=== PATIENT | female | born 1945 | race Caucasian/White ===

== ENCOUNTER 2020-06-12 13:39 | Emergency (ER) | payer MEDICARE, OTHER ==
--- NOTE | 2020-06-12 14:00 | ERPHSYRPT ---
- History of Present Illness Time Seen by Provider: 06/12/20 13:50 Source: patient Physician History: Patient is a 75-year-old female presents to our ED for evaluation of a syncopal episode and head laceration. Patient states she was mulching leaves while pushing a lawnmower. Patient does not recall what happened but knows that she awoke on the floor of her porch. Patient denies chest pain shortness of breath. No neck pain. Cervical spine cleared clinically. Patient admits to history of a mini stroke. Patient denies heart problems. Patient states she was a diabetic but lost significant weight intentionally and her diabetes resolved. Patient voices no other complaints or concerns at this time. Timing/Duration: today Severity: moderate Modifying Factors: Improves With: nothing Associated Symptoms: denies symptoms Allergies/Adverse Reactions: Penicillins Allergy (Verified 06/12/20 14:07) Home Medications: Aspirin EC 81 mg [Ecotrin 81 mg] 81 mg PO DAILY 06/12/20 [History] Lisinopril/Hydrochlorothiazide [Lisinopril-Hctz 20-12.5 mg Tab] 1 tab PO DAILY 06/12/20 [History] Metoprolol Tartrate 50 mg PO DAILY 06/12/20 [History] Rosuvastatin Calcium 20 mg PO DAILY 06/12/20 [History] - Review of Systems Constitutional: No Symptoms, No Fever, No Chills Eyes: No Symptoms Ears, Nose, & Throat: No Symptoms Respiratory: No Symptoms, No Cough, No Dyspnea Cardiac: No Symptoms, No Chest Pain, No Edema, No Syncope Abdominal/Gastrointestinal: No Symptoms, No Abdominal Pain, No Nausea, No Vomiting, No Diarrhea Genitourinary Symptoms: No Symptoms, No Dysuria Musculoskeletal: No Symptoms, No Back Pain, No Neck Pain Skin: No Symptoms, No Rash Neurological: No Symptoms, No Dizziness, No Focal Weakness, No Sensory Changes Psychological: No Symptoms Endocrine: No Symptoms Hematologic/Lymphatic: No Symptoms Immunological/Allergic: No Symptoms All Other Systems: Reviewed and Negative - Past Medical History Neurological History: Stroke Cardiac History: Hypertension, Other Respiratory History: No Pertinent History Endocrine Medical History: Adrenal Insufficiency, Diabetes Type II Musculoskeletal History: Arthritis, Osteoarthritis Other Medical History: CVA, R SIDED HEMIPLEGIA THAT HAS RESOLVED, STINT IN HEART 05/12/02. - Nursing Vital Signs Nursing Vital Signs: Initial Vital Signs Pulse Rate 90 06/12/20 13:48 Respiratory Rate 21 06/12/20 13:48 Blood Pressure 164/94 06/12/20 13:48 O2 Sat by Pulse Oximetry 95 06/12/20 13:48 Pain Scale Pain Intensity 5 - Physical Exam General Appearance: no apparent distress, alert Eye Exam: PERRL/EOMI, eyes nml inspection, other (Large left frontal scalp laceration above the eyebrow. The area is surrounded by contused skin.) Ears, Nose, Throat Exam: normal ENT inspection, TMs normal, pharynx normal, moist mucous membranes Neck Exam: normal inspection, non-tender, supple, full range of motion Respiratory Exam: normal breath sounds, lungs clear, No respiratory distress Cardiovascular Exam: regular rate/rhythm, normal heart sounds, normal peripheral pulses Gastrointestinal/Abdomen Exam: soft, normal bowel sounds, No tenderness, No mass Back Exam: normal inspection, normal range of motion, No CVA tenderness, No vertebral tenderness Extremity Exam: normal inspection, normal range of motion, pelvis stable Neurologic Exam: alert, oriented x 3, cooperative, normal mood/affect, nml cerebellar function, nml station & gait, sensation nml, No motor deficits Skin Exam: normal color, warm, dry, No rash Lymphatic Exam: No adenopathy SpO2 Interpretation: normal SpO2: 98 O2 Delivery: Room Air Procedures - Laceration/Wound Repair Left Upper Anterior Head Wound Location: Left Wound Length (cm): 4 Wound's Depth, Shape: superficial, flap, contused tissue Wound Explored: no foreign body noted Irrigated: Yes Hibiclens Prep: Yes Anesthesia: 1% Lidocaine Volume Anesthetic (ccs): 3 Wound Debrided: minimal Wound Repaired With: sutures Suture Size/Type: 6-0 Number of Sutures: 9 Layer Closure?: No Sterile Dressing Applied?: Yes Splint Applied?: No Progress: 06/12/20 16:18 Patient tolerated procedure well. No immediate post procedure complications. - Course Nursing assessment & vital signs reviewed: Yes EKG Interpreted by Me: RATE (98), Sinus Rhythm, NORMAL AXIS, NORMAL INTERVALS (Bigeminy) - CT Exams Head CT Interpretation: Tele-radiologist Report (Frontal parietal scalp hematoma. Atrophy and degenerative microischemia within normal limits for patient's age. Paranasal sinus disease) Ordered Tests: Active Orders 24 hr Category Date Time Status Construction Quality Control Manager STAT Care 06/12/20 13:51 Active EKG-ER Only STAT Care 06/12/20 13:50 Active IV Insertion STAT Care 06/12/20 13:50 Active Pulse Oximetry (ED) STAT Care 06/12/20 13:50 Active HEAD WITHOUT CONTRAST [CT] Stat Exams 06/12/20 13:52 Completed CBC W DIFF Stat Lab 06/12/20 14:00 Completed CMP Stat Lab 06/12/20 14:00 Completed MAGNESIUM Stat Lab 06/12/20 14:00 Completed TROPONIN Q3H Lab 06/12/20 14:00 Completed TROPONIN Q3H Lab 06/12/20 17:00 Ordered TROPONIN Q3H Lab 06/12/20 20:00 Ordered TROPONIN Q3H Lab 06/12/20 23:00 Ordered TROPONIN Q3H Lab 06/13/20 02:00 Ordered UA W/RFX UR CULTURE Stat Lab 06/12/20 13:51 Ordered Medication Summary Discontinued Medications Generic Name Dose Route Start Last Admin Trade Name Freq PRN Reason Stop Dose Admin Morphine Sulfate 2 mg 06/12/20 16:14 Morphine Sulfate 2 Mg Inj IV 06/12/20 16:15 STAT ONE Ondansetron HCl 4 mg 06/12/20 16:14 Zofran 4 Mg/2 Ml Vial IV 06/12/20 16:15 STAT ONE Lab/Rad Data: Laboratory Result Diagrams 06/12/20 14:00 06/12/20 14:00 Laboratory Results 06/12/20 06/12/20 06/12/20 Range/Units 14:00 14:00 14:00 WBC 9.6 (4.0-10.5) K/mm3 RBC 4.46 (4.1-5.4) M/mm3 Hgb 13.5 (12.0-16.0) gm/dl Hct 41.1 (35-47) % MCV 92.2 (78-100) fl MCH 30.3 (26-32) pg MCHC 32.8 (32-36) g/dl RDW 12.6 (11.5-14.0) % Plt Count 274 (150-450) K/mm3 MPV 9.2 (7.5-11.0) fl Gran % 67.6 H (36.0-66.0) % Eos # (Auto) 0.12 (0-0.5) Absolute Lymphs (auto) 2.22 (1.0-4.6) Absolute Monos (auto) 0.72 (0.0-1.3) Lymphocytes % 23.2 L (24.0-44.0) % Monocytes % 7.5 (0.0-12.0) % Eosinophils % 1.3 (0.00-5.0) % Basophils % 0.4 (0.0-0.4) % Absolute Granulocytes 6.47 (1.4-6.9) Basophils # 0.04 (0-0.4) Sodium 137 (137-145) mmol/L Potassium 4.2 (3.5-5.1) mmol/L Chloride 103 (98-107) mmol/L Carbon Dioxide 23 (22-30) mmol/L Anion Gap 14.9 (5-15) MEQ/L BUN 27 H (7-17) mg/dL Creatinine 1.42 H (0.52-1.04) mg/dL Estimated GFR 38.1 ML/MIN Glucose 159 H (74-106) mg/dL Calcium 10.5 H (8.4-10.2) mg/dL Magnesium 2.1 (1.6-2.3) mg/dL Total Bilirubin 0.50 (0.2-1.3) mg/dL AST 29 (14-36) U/L ALT 21 (0-35) U/L Alkaline Phosphatase 62 (38-126) U/L Troponin I < 0.012 (0.000-0.034) ng/mL Serum Total Protein 8.3 H (6.3-8.2) g/dL Albumin 4.7 (3.5-5.0) g/dL - Progress Progress: improved Progress Note: 06/12/20 16:21 Patient reassessed. She feels well. Laceration repaired. CT head negative for acute intracranial pathology. Initial troponin negative. Bigeminy observed on her EKG and residential monitor. Patient had a syncopal episode. Patient will require admission for further evaluation and treatment. Patient's daughter advised transfer to [facility]. Patient agreed. Plan of care discussed with patient. She agrees to transfer from [facility] to this [facility] for further evaluation and treatment. Dr. Rondon accepts transfer to [facility]. 06/12/20 16:25 Discussed with : Other Counseled pt/family regarding: lab results, diagnosis, rad results - Departure Departure Disposition: Transfer Clinical Impression: Bigeminy, Syncope and collapse, Face lacerations, Elevated serum creatinine, Concussion, Scalp hematoma, Paranasal sinus disease Condition: Stable Critical Care Time: No Referrals: ANA ALBARADO [NON-STAFF PHY W/O PRIVILEGES] -
[2020-06-12 14:17] LABS: Absolute Neutrophil Ct (ANC) 6.47 (1.4-6.9); BASOPHIL % 0.4 % (0.0-0.4); Basophil (Absolute #) 0.04 (0-0.4); Eosinophil % 1.3 % (0.00-5.0); Eosinophil (Absolute #) 0.12 (0-0.5); Hematocrit 41.1 % (35-47); Hemoglobin 13.5 gm/dl (12.0-16.0); Lymphocyte (Absolute #) 2.22 (1.0-4.6); Lymphocytes % 23.2 % (24.0-44.0); Mean Cell Volume 92.2 fl (78-100); Mean Corpuscular Hemoglobin 30.3 pg (26-32); Mean Corpuscular Hgb Concent. 32.8 g/dl (32-36); Mean Platelet Volume 9.2 fl (7.5-11.0); Monocyte (Absolute #) 0.72 (0.0-1.3); Monocytes % 7.5 % (0.0-12.0); Neutrophil % 67.6 % (36.0-66.0); Platelet Count 274 K/mm3 (150-450); Red Blood Count 4.46 M/mm3 (4.1-5.4); Red Cell Distribution Width 12.6 % (11.5-14.0); White Blood Count 9.6 K/mm3 (4.0-10.5)
[2020-06-12 14:33] LABS: ALBUMIN 4.7 g/dL (3.5-5.0); ANION GAP 14.9 MEQ/L (5-15); BILIRUBIN,TOTAL 0.5 mg/dL (0.2-1.3); Calcium 10.5 mg/dL (8.4-10.2); MAGNESIUM 2.1 mg/dL (1.6-2.3); Potassium 4.2 mmol/L (3.5-5.1); Total Protein 8.3 g/dL (6.3-8.2)
[2020-06-12 14:34] LABS: Creatinine 1 1.42 mg/dL (0.52-1.04); EST GLOMERULAR FILTRATION RATE 38.1 ML/MIN
--- NOTE | 2020-06-12 14:41 | XRAY ---
Indication: Left frontal head injury. Multiple contiguous axial images obtained through the head without contrast. Comparison: None Age-appropriate global atrophy and mild/moderate periventricular degenerative micro-ischemia bilaterally. No acute intracranial hemorrhage, abnormal extra-axial fluid collection, or mass effect. Fourth ventricle is midline without hydrocephalus. Small left frontoparietal scalp hematoma. Bony calvarium intact. There is chronic appearing mucoperiosteal thickening of both ethmoid and both maxillary sinuses with both maxillary sinus fluid leveling. Mastoid air cells are clear. Impression: 1. Left frontoparietal scalp hematoma. No underlying fracture or acute intracranial abnormalities. 2. Atrophy and degenerative micro-ischemia within normal limits for patient's age. 3. Paranasal sinus disease.
[2020-06-12] MEDS ORDERED: MORPHINE SULFATE 2 MG INJ IV ONE (16:14)
[2020-06-12] MEDS ORDERED: Zofran 4 MG/2 ML VIAL IV ONE (16:14)
[2020-06-12] MEDS ORDERED: Zofran 4 MG/2 ML VIAL ONE (16:23)
[2020-06-12] MEDS ORDERED: MORPHINE SULFATE 2 MG INJ ONE (16:23)
[2020-06-12 18:06] LABS: Appearance CLEAR (CLEAR); Bacteria PACKED /HPF (NEGATIVE); Bilirubin NEGATIVE (NEGATIVE); Blood NEGATIVE Ery/ul (0-5); Glucose NEGATIVE (NEGATIVE); Ketones SMALL (NEGATIVE); Leukocyte Esterase TRACE (NEGATIVE); Mucus SLIGHT /HPF (NEGATIVE); Nitrite POSITIVE (NEGATIVE); Protein,Urine Dip NEGATIVE (Negative); Specific Gravity 1.015 (1.005-1.025); Urobilinogen NEGATIVE mg/dL (0-1)
[2020-06-12] MEDS ORDERED: Macrobid 100MG Capsule PO ONE (18:47)
[2020-06-12] MEDS ORDERED: Macrobid 100MG Capsule ONE (18:48)
[2020-06-12 20:08] VITALS: BP 154/87; PULSE 93; O2SAT 95
== END 2020-06-12 20:39 | disposition short-term general hospital (02) ==
LOC: ED 13:39
DX: R55 Syncope and collapse (principal); S01.112A Laceration without foreign body of left eyelid and periocular area, initial encounter; R00.8 Other abnormalities of heart beat; I10 Essential (primary) hypertension; Z79.899 Other long term (current) drug therapy; S06.0X9A Concussion with loss of consciousness of unspecified duration, initial encounter; R79.89 Other specified abnormal findings of blood chemistry; S00.03XA Contusion of scalp, initial encounter; J32.9 Chronic sinusitis, unspecified; E11.9 Type 2 diabetes mellitus without complications
CPT/HCPCS: 36000; 36415; 70450; 80053; 81001; 83735; 84484; 85025; 87077; 87086; 87186; 93005; 93041; 94760; 96374; 96375; 99284; J2270; J2405; A9270-GY

== ENCOUNTER 2024-01-08 22:12 | Emergency (ER) | payer MEDICARE ==
[2024-01-08 22:15] VITALS: TEMP 99.1
--- NOTE | 2024-01-08 22:17 | ERPHSYRPT ---
- History of Present Illness Time Seen by Provider: 01/08/24 22:17 Source: patient, family Exam Limitations: no limitations Physician History: This is an 78-year-old white female patient who was brought into the emergency department by her daughter. Patient fell at approxi-11:30 AM. Patient took 1000 mg of Tylenol at noon today. Patient tripped over the elevated edge of her concrete driveway. She did not hit her head. She has no headache and she did not hurt her neck and she has no neck pain. Patient fell onto the left side and she has left shoulder pain left upper posterior lateral rib pain and left hip pain. Patient is able to ambulate. Patient is on anticoagulation therapy (Xarelto). Patient has history of gastroesophageal reflux disease, hypertension diabetes and hyperlipidemia. Patient states that she did not want to come in to the emergency department today. Her daughter made her come in for evaluation. Occurred: this morning Reason for Fall: tripped Injuries/Pain Location: upper extremity (Left shoulder), chest (Left upper posterior lateral ribs), lower extremity (Left hip) Loss of Consciousness: no loss of consciousness Quality: aching Severity of Pain-Max: moderate Severity of Pain-Current: moderate Modifying Factors: Improves With: movement Associated Symptoms (Fall): extremity injury (Left shoulder pain), No abdominal pain, No back pain, No confusion, No chest pain, No headache, No neck pain, No shortness of breath, No vision changes Allergies/Adverse Reactions: Penicillins Allergy (Intermediate, Verified 01/08/24 22:26) Rash Sulfa (Sulfonamide Antibiotics) Allergy (Intermediate, Verified 01/08/24 22:26) Rash Home Medications: Rosuvastatin Calcium 20 mg PO HS 06/12/20 [History] Fexofenadine HCl [Aller-Ease] 180 mg PO DAILY 01/08/24 [History] Losartan Potassium 50 mg [Cozaar 50 MG] 1 tab PO DAILY 01/08/24 [History] Metformin HCl 500 mg [Glucophage 500 MG] 1 tab PO DAILY 01/08/24 [History] Minocycline HCl 100 mg PO HS 01/08/24 [History] PANTOPRAZOLE 40 mg Tablet [Protonix 40MG Tablet] 1 tab PO HS 01/08/24 [History] Rivaroxaban [Xarelto] 20 mg PO HS 01/08/24 [History] Hx Tetanus, Diphtheria Vaccination/Date Given: No Travel Risk - International Travel Have you traveled outside of the country in past 3 weeks: No - Emerging Infectious Disease Are you exhibiting symptoms associated with any current EIDs: No - Review of Systems Constitutional: No Symptoms Eyes: No Symptoms Ears, Nose, & Throat: No Symptoms Respiratory: No Symptoms Cardiac: No Symptoms Abdominal/Gastrointestinal: No Symptoms Genitourinary Symptoms: No Symptoms Musculoskeletal: Fall, Injury (Left shoulder, left upper posterior lateral ribs and left hip pain after a fall), No Back Pain, No Neck Pain, No Deformity Skin: No Symptoms Neurological: No Symptoms Psychological: No Symptoms Endocrine: No Symptoms Hematologic/Lymphatic: No Symptoms Immunological/Allergic: No Symptoms All Other Systems: Reviewed and Negative - Past Medical History Pertinent Past Medical History: Yes Neurological History: Stroke Cardiac History: Hypertension, Other Respiratory History: No Pertinent History Endocrine Medical History: Adrenal Insufficiency, Diabetes Type II Musculoskeletal History: Arthritis, Osteoarthritis Other Medical History: CVA, R SIDED HEMIPLEGIA THAT HAS RESOLVED, STINT IN HEART 05/12/02. - Past Surgical History Past Surgical History: Yes Cardiac: Cardiac Stent Gastrointestinal: Appendectomy, Cholecystectomy Female Surgical History: Hysterectomy - Social History Smoking Status: Never smoker Exposure to second hand smoke: No Drug Use: none Patient Lives Alone: Yes - Nursing Vital Signs Nursing Vital Signs: Initial Vital Signs Temperature 99.1 F 01/08/24 22:14 Pulse Rate 77 01/08/24 22:14 Respiratory Rate 20 01/08/24 22:14 Blood Pressure 180/115 01/08/24 22:14 O2 Sat by Pulse Oximetry 97 01/08/24 22:14 Pain Scale Pain Intensity 4 - Orange Coma Score Best Eye Response (Alana): (4) open spontaneously Best Verbal Response (Orange): (5) oriented Best Motor Response (Alana): (6) obeys commands Alana Total: 15 - Physical Exam General Appearance: no apparent distress, alert Head Injury: no evidence of injury Eye Exam: PERRL/EOMI, eyes nml inspection ENT Exam: airway nml, nml ext.inspection Neck Exam: supple, trachea midline, full range of motion, normal alignment, normal inspection Respiratory/Chest Exam: normal breath sounds, rib tenderness (Left upper to mid posterior lateral rib pain to palpation. No deformity), No chest tenderness, No respiratory distress, No ecchymosis, No crepitus Cardiovascular Exam: normal heart sounds, regular rate/rhythm Gastrointestinal Exam: soft, normal bowel sounds, No tenderness Rectal Exam: not done Back Exam: normal inspection, normal range of motion, No CVA tenderness, No vertebral tenderness Extremity Exam: normal inspection, normal range of motion, hip tenderness (To palpation), No evidence of injury Neurologic Exam: alert, oriented x 3, cooperative, prosthetic lab technician II-XII nml as tested, normal mood/affect, nml cerebellar function, nml station & gait, sensation nml Skin Exam: normal color, warm, dry SpO2 Interpretation: normal SpO2: 97 O2 Delivery: Room Air - Course Nursing assessment & vital signs reviewed: Yes Ordered Tests: Active Orders 24 hr Category Date Time Status HIP UNI (2V) INCL PEL IF DONE Stat Exams 01/08/24 23:12 Completed RIBS UNILATERAL Stat Exams 01/08/24 23:12 Completed SHOULDER Stat Exams 01/08/24 23:12 Completed Medication Summary Discontinued Medications Generic Name Dose Route Start Last Admin Trade Name Zbigniew PRN Reason Stop Dose Admin Oxycodone/Acetaminophen 1 tab 01/08/24 23:11 01/08/24 23:21 Oxycodone Hcl/Apap 5 Mg/325 Mg Tablet PO 01/08/24 23:12 1 tab STAT STA Administration Oxycodone/Acetaminophen Confirm 01/08/24 23:21 Oxycodone Hcl/Apap 5 Mg/325 Mg Tablet Administered 01/08/24 23:22 Dose 1 tab .ROUTE .[employer] - Progress Progress Note: 01/08/24 23:52 My medical decision making and the assignment of low to moderate complexity to this patient's medical issues based on review of the patient's past medical history, review the patient's medication list, review of patient drug allergy list, history present illness and physical findings on examination. The workup in this patient includes x-ray of the patient's left shoulder, left ribs, and left hip. Differential diagnosis includes but is not limited to bony contusion, dislocation, acute fracture 01/09/24 01:39 The left shoulder x-ray was interpreted by the radiologist and I reviewed the impression. Patient states no acute osseous abnormality seen involving the left shoulder joint bones. There is a questionable nondisplaced left sixth rib fracture. Left rib x-rays was interpreted by the radiologist and I reviewed the impression. The impression is suspected nondisplaced fracture of the left sixth rib. No pneumothorax, consolidation or pleural effusion. The left hip and pelvis x-ray films were interpreted by the radiologist and I reviewed the impression. The impression states no definite acute fracture. Mild to moderate osteoarthritic changes. Counseled pt/family regarding: diagnosis, need for follow-up, rad results Medical Desision Making - Independent Historian Additional History obtained from: Family - Diagnostic Testing Diagnostic test were ordered, analyzed, and reviewed by me: Yes Radiological Interpretation: Reviewed by me, Teleradiologist Report - Departure Departure Disposition: Home Clinical Impression: Closed traumatic nondisplaced fracture of rib of left side with routine healing Condition: Stable Critical Care Time: No Referrals: AMBER CARTER MD [Primary Care Provider] - Follow up/PCP as directed Additional Instructions: Ice pack to tender areas 3 times a day for 72 hours. Take the pain medicine that I provided you in the emergency department. Once that medication is completed, you can use your Tylenol as prescribed. Call your primary care provider on 01/11/2024, to make arranges for follow-up appointment for further evaluation management in the next 3 to 5 days.
[2024-01-08] MEDS ORDERED: PERCOCET TABLET 5/325MG ONE (23:21)
[2024-01-08] MEDS: PERCOCET TABLET 5/325MG PO STA (23:21)
--- NOTE | 2024-01-09 01:13 | XRAY ---
CLINICAL HISTORY: Fall injury COMPARISON: None TECHNIQUE: x-ray of the shoulder joint external rotation and internal rotation and Y-view FINDINGS: No acute osseous abnormality is seen involving the shoulder joint bones. No soft tissue abnormality is seen. No intra-articular and periarticular densification is seen. Mild osteoarthritis changes are seen involving the acromioclavicular joint. On reviewing the oblique views of the ribs a possible non-displaced fracture of the left 6th rib is noted. IMPRESSION: 1. No acute osseous abnormality is seen involving the shoulder joint bones. 2. On reviewing the oblique views of the ribs a possible non-displaced fracture of the left 6th rib is noted. DISCLAIMER:A subtle bone abnormality or fracture may not be readily apparent on x-rays, thus clinical correlation and further imaging including follow-up CT, MRI, or follow-up x-rays are advised as needed.[facility] ER was called at [phone] at 12:05 AM STRAIGHT KNIFE CUTTER MACHINE, 01/09/[address] Ede Frost was informed about medical findings. Electronically Signed by: Jerry Orozco MD. (01/09/2024 01:08:49 EDT)
--- NOTE | 2024-01-09 01:13 | XRAY ---
CLINICAL HISTORY: Fall injury COMPARISON: None. TECHNIQUE: X-ray of the ribs left side unilateral, AP lateral and oblique views FINDINGS: A suspected non-displaced fracture of the left 6th rib is noted. curvilinear calcification of the aortic arch. No obvious pneumothorax, consolidation, or pleural effusion is seen IMPRESSION: 1. A suspected non-displaced fracture of the left 6th rib is noted. 2. No obvious pneumothorax, consolidation, or pleural effusion is seen. DISCLAIMER:A subtle bone abnormality or fracture may not be readily apparent on x-rays, thus clinical correlation and further imaging including follow up CT, MRI, or follow up x-rays are advised as needed.[facility] ER was called at [phone] at 12:05 AM HOUSE MOVER HELPER, 01/09/[address] Ede Frost was informed about medical findings. Electronically Signed by: Jerry Orozco MD. (01/09/2024 01:10:30 EDT)
--- NOTE | 2024-01-09 01:30 | XRAY ---
CLINICAL HISTORY: Fall injury COMPARISON: None. TECHNIQUE: X-ray of the pelvis AP view and left hip joint AP and lateral views. FINDINGS: No acute osseous abnormality is noted. Mild to moderate osteoarthritis changes involving the bilateral hip and sacroiliac joints. Degenerative changes are seen involving the spine. Calcific densities are seen in the pelvis and likely represent phleboliths. calcific density is seen in the right flank which could be renal calculus/fecalith IMPRESSION: 1. No definite/obvious acute fracture is seen. 2. Mild to moderate osteoarthritis changes involving the bilateral hip and sacroiliac joints. 3. Advise clinical correlation. DISCLAIMER:A subtle bone abnormality or fracture may not be readily apparent on x-rays, thus clinical correlation and further imaging including follow up CT, MRI, or follow up x-rays are advised as needed. Electronically Signed by: Jerry Orozco MD. (01/09/2024 01:24:42 EDT)
[2024-01-09] MEDS ORDERED: PERCOCET TABLET 5/325MG ONE (01:51)
[2024-01-09] MEDS: PERCOCET TABLET 5/325MG PO STA (01:52)
[2024-01-09 02:17] VITALS: BP 153/77; PULSE 83; RESP 17; O2SAT 93
== END 2024-01-09 02:18 | disposition home or self-care (01) ==
LOC: ED 22:12
DX: S22.32XA Fracture of one rib, left side, initial encounter for closed fracture (principal); W01.0XXA Fall on same level from slipping, tripping and stumbling without subsequent striking against object, initial encounter; Y92.007 Garden or yard of unspecified non-institutional (private) residence as the place of occurrence of the external cause; M25.512 Pain in left shoulder; M25.552 Pain in left hip; I10 Essential (primary) hypertension; E78.5 Hyperlipidemia, unspecified; E11.9 Type 2 diabetes mellitus without complications; Z79.01 Long term (current) use of anticoagulants; Z79.84 Long term (current) use of oral hypoglycemic drugs; Z79.899 Other long term (current) drug therapy
CPT/HCPCS: 71100; 73030; 73502; 99283; A9270-GY